=== PATIENT | male | born 1940 | race Caucasian/White ===

== ENCOUNTER 2017-05-10 14:12 | Outpatient (CLI) | payer MEDICARE, OTHER ==
[2017-05-10 14:26] LABS: BASOPHILS % 0.6 (0.0-1.5); EOSINOPHILS % 5.3 % (0.0-6.8); MEAN CORPUSCULAR VOLUME 89.9 fl (80.0-100.0); MONOCYTES % 6.8 % (0.0-11.0); NEUTROPHILS # 4.7 # k/uL (1.4-7.7)
[2017-05-10 14:30] LABS: APPEARANCE,URINE Clear (CLEAR); COLOR,URINE Yellow (YELLOW); OCCULT BLOOD,URINE Negative (NEGATIVE); UROBILINOGEN URINE 0.2 Eu (0.2-1.0)
[2017-05-10 14:55] LABS: eGFR (African) 30; eGFR (Non-African) 25
== END 2017-05-10 14:13 ==
LOC: LAB 14:12
PROVIDERS: ATTEND Family Medicine
DX: I10 Essential (primary) hypertension (principal); N18.3 Chronic kidney disease, stage 3 (moderate); R31.9 Hematuria, unspecified
CPT/HCPCS: 36415; 80048; 81002; 85025

== ENCOUNTER 2017-05-23 10:49 | Outpatient (CLI) | payer MEDICARE, OTHER | END 2017-05-23 10:50 | LOC: OUT 10:49 | PROVIDERS: ATTEND Colon & Rectal Surgery | DX: K40.90 Unilateral inguinal hernia, without obstruction or gangrene, not specified as recurrent (principal) | CPT/HCPCS: G0463 ==

== ENCOUNTER 2017-05-28 13:31 | Outpatient (CLI) | payer MEDICARE, OTHER ==
--- NOTE | 2017-05-28 14:59 | Diagnostic Imaging Report ---
BE CENTENO [facility] [address] [facility] [address] [address] Report Submission Date: May 28, 2017 2:32:50 PM CDT Patient Study Name: LELAND RODRIGUEZ Date: May 28, 2017 1:44:36 PM CDT Modality Type: US Gender: M Description: DPLX SCN XTRCRAN ART CMP LAMONT : 42 Institution: [facility] Physician: BE CENTENO Examination: Carotid artery ultrasound History: Syncope Comparison exams: None available Findings: Right carotid: Common carotid artery peak systolic velocity 88.3 cm/s; end diastolic velocity 25.1 cm/s. Internal carotid artery peak systolic velocity 85.8 cm/s; end diastolic velocity 26.4 cm/s. External carotid artery velocity to 104.9 cm/s. Vertebral artery velocity 29.2 cm/s Vertebral flow antegrade. Normal waveforms. No occlusive plaquing. Left carotid: Common carotid artery peak systolic velocity 110.3 cm/s; end diastolic velocity 20.6 cm/s. Internal carotid artery peak systolic velocity 184.0 cm/s; end diastolic velocity 49.9 cm/s. External carotid artery velocity to 74.5 cm/s. Vertebral artery velocity 64.9 cm/s Vertebral flow antegrade. Normal waveforms. Moderate plaquing at the origin of the internal carotid artery. Right ICA/CCA Ratio: 1.0 Left ICA/CCA Ratio 1.7 Impression: Mild to moderately elevated left carotid ratio at 1.7 indicating restriction hemodynamic flow. Moderate plaque at the origin of the internal carotid artery. Right carotid system without restriction to hemodynamic flow Electronically signed on May 28, 2017 2:32:50 PM CDT by: Rc PETERS
== END 2017-05-28 13:32 ==
LOC: RAD 13:31
PROVIDERS: ATTEND Family Medicine
DX: G81.91 Hemiplegia, unspecified affecting right dominant side (principal)
CPT/HCPCS: 93880

== ENCOUNTER 2017-05-29 12:08 | Outpatient (CLI) | payer MEDICARE, OTHER | END 2017-05-29 12:10 | LOC: LAB 12:08 | PROVIDERS: ATTEND Family Medicine | DX: R79.1 Abnormal coagulation profile (principal) | CPT/HCPCS: 36415; 85610 ==

== ENCOUNTER 2017-06-02 08:23 | Outpatient (CLI) | payer MEDICARE, OTHER ==
--- NOTE | 2017-06-02 19:11 | Diagnostic Imaging Report ---
CANDELARIA JARAMILLO~ [facility] [place] [facility] [address] [facility].[address] [address] ~ ~ ~ ~ Report Submission Date: Jun 02, 2017 10:09:25 AM CDT Patient ~ Study Name: LELAND RODRIGUEZ ~ Date: Jun 02, 2017 9:13:48 AM CDT ~ Modality Type: MR Gender: M ~ Description: MRI BRAIN W/O CONTRAST : 42 ~ Institution: [facility] [place] [facility] Physician: CANDELARIA JARAMILLO ~ ~ ~ ~ Examination: MRI brain without contrast History: Possible stroke Comparison exam: None provided Technique: MRI brain without contrast. Findings: Ventricles and sulci are appropriate for patient age. Scattered periventricular and deep white matter gliotic foci. On diffusion-weighted images there is a small area of increased signal involving the left basal ganglia. No other diffusion-weighted abnormalities. No midline shift. No extra axial fluid collections. Partial visualization of the paranasal sinuses, mastoid air cells, orbits, skull and scalp are without gross irregularity. No pineal or sellar mass. Impression: Age related parenchymal changes. Diffusion-weighted images demonstrate small area of increased signal left basal ganglia - likely representing a small acute ischemic process. Correlate with patient symptoms. Just findings with ER nurse to relay information to Dr. Polanco ~at 1010 hours on 02 June 2017 ~ Electronically signed on Jun 02, 2017 10:09:25 AM CDT by: Rc PETERS
--- NOTE | 2017-06-02 19:12 | Diagnostic Imaging Report ---
CANDELARIA JARAMILLO~ [facility] [address] [facility] [place] [facility] [address] [place], [place]. [address] ~ ~ ~ ~ Report Submission Date: Jun 02, 2017 10:43:00 AM CDT Patient ~ Study Name: LELAND RODRIGUEZ ~ Date: Jun 02, 2017 8:39:06 AM CDT ~ Modality Type: MR Gender: M ~ Description: MRA NECK W/O CONTRAST : 42 ~ Institution: [facility] Physician: CANDELARIA JARAMILLO ~ ~ ~ ~ Examination: MRI neck /carotids History: Right-sided weakness. Comparison exams: MRI brain dated 02 June 2017 Technique: MRI carotid arteries. No reconstructed images provided Findings: Origins of the arteries not visualized. Narrowing of the common carotid artery by approximately 50-60 % near the bifurcation. Right vertebral artery is diminutive with o majority of the artery not visualized. Regions of scattered peripheral atherosclerotic disease involving the internal carotid arteries and visualize margins of the left vertebral artery. Impression: Suboptimal study demonstrating scattered regions of arterial plaquing and narrowing. Nonvisualization of the right vertebral artery suggesting occlusion. Consider obtaining interventional neurology of the consultation for further evaluation. Discussed MR findings with ER nurse to relay information to Dr. Polanco ~at 1010 hours on 02 June 2017 ~ Electronically signed on Jun 02, 2017 10:43:00 AM CDT by: Rc PETERS
== END 2017-06-02 08:24 ==
LOC: RAD 08:23
PROVIDERS: ATTEND Family Medicine
DX: G81.91 Hemiplegia, unspecified affecting right dominant side (principal); I65.21 Occlusion and stenosis of right carotid artery
CPT/HCPCS: 70547; 70551

== ENCOUNTER 2017-06-02 10:25 | Emergency (ER) | payer MEDICARE, OTHER ==
--- NOTE | 2017-06-02 12:23 | ED Physician Documentation ---
General Adult - HISTORIAN Historian: other (Pt not seen in ER, history from record) - HPI Stated Complaint: R-sided weakness Chief Complaint: General Adult Onset: days ago (>7days) Timing: still present Further Comments: yes (Pt is a 76 yo male who has been having R-sided weakness and was sent by his pcp for an out-patient MRI this am. MRI showed a small acute ischemic process in the R basal ganglia. Pt was urged to be seen in ER, but refused to be seen here. Pt stated that he would go to [facility] on his own, and that his brother would take him there. Pt was not seen in ER, AMA. ) - ROS CONST: weakness - PAST HX Past History: other (BPH; DJD cervical spine; Dementia; HLD; HTN; Renal insufficiency.) Allergies/Adverse Reactions: Allergies Allergy/AdvReac Type Severity Reaction Status Date / Time No Known Drug Allergies Allergy Unverified 06/21/16 13:34 Home Medications: Ambulatory Orders Medication Instructions Recorded Aspirin [Aspir 81] 81 mg PO DAILY u2 06/21/16 Atorvastatin Calcium 10 mg PO DAILY u2 06/21/16 Carvedilol [Coreg] 12.5 mg PO BID u2 06/21/16 Chlorthalidone 25 mg PO DAILY u2 06/21/16 Doxazosin Mesylate 4 mg PO DAILY u2 06/21/16 Nifedipine [Nifedipine Er] 30 mg PO DAILY u2 06/21/16 Torsemide 20 mg PO DAILY u2 06/21/16 - SOCIAL HX Smoking History: other (smoking hx unknown) - FAMILY HX Family History: No General Adult Physical Exam - PHYSICAL EXAM GENERAL APPEARANCE: No exam, AMA Discharge Clincal Impression: R-sided weakness, cva Referrals: Volodymyr Maurer MD [Primary Care Provider] - 2 Days Home Medications: Ambulatory Orders Aspirin [Aspir 81] 81 mg PO DAILY u2 06/21/16 Atorvastatin Calcium 10 mg PO DAILY u2 06/21/16 Carvedilol [Coreg] 12.5 mg PO BID u2 06/21/16 Chlorthalidone 25 mg PO DAILY u2 06/21/16 Doxazosin Mesylate 4 mg PO DAILY u2 06/21/16 Nifedipine [Nifedipine Er] 30 mg PO DAILY u2 06/21/16 Torsemide 20 mg PO DAILY u2 06/21/16
== END 2017-06-02 10:35 | disposition left against medical advice (07) ==
LOC: ED 10:25
DX: Z53.21 Procedure and treatment not carried out due to patient leaving prior to being seen by health care provider (principal)

== ENCOUNTER 2017-08-08 07:23 | Day surgery (SDC) | payer MEDICARE, OTHER ==
[2017-08-08] MEDS ORDERED: SALINE FLUSH 10 ML DISP.SYRIN IVF ONE (08:00)
[2017-08-08] MEDS ORDERED: LACTATED RINGERS 1,000 ML IV.SOLN IV ONE (08:00)
[2017-08-08] MEDS ORDERED: ACETAMINOPHEN 1,000 MG/100 ML INJ IV ONE (08:00)
[2017-08-08] MEDS ORDERED: BUPIVACAINE HCL/EPINEPHRINE/PF 0.25% VIAL IM ONE (08:00)
[2017-08-08] MEDS ORDERED: DEXAMETHASONE SOD PHOS 4 MG/ML VIAL ONE (08:00)
[2017-08-08] MEDS ORDERED: MIDAZOLAM HCL 2 MG/2 ML VIAL ONE (08:00)
[2017-08-08] MEDS ORDERED: PROPOFOL 200 MG/20 ML VIAL IV ONE (08:00)
[2017-08-08] MEDS ORDERED: fentaNYL CITRATE/PF 100 MCG/ 2ML AMP ONE (08:00)
[2017-08-08] MEDS ORDERED: SEVOFLURANE 250 ML LIQUID IH ONE (08:00)
[2017-08-08] MEDS ORDERED: BACITRACIN 50,000 UNIT VIAL ONE (08:00)
[2017-08-08] MEDS ORDERED: HYDROcodone /APAP 5/325 1 EACH TABLET ONE ×2 (08:00→11:19)
[2017-08-08] MEDS ORDERED: ceFAZolin SODIUM 1 GM VIAL ONE (08:00)
--- NOTE | 2017-08-08 12:35 | History and Physical Report ---
HISTORY OF PRESENT ILLNESS: This is a 76-year-old man who has had a several month history of a left inguinal hernia. He has noticed a bulge most of the time and has discomfort. He would like repair. PAST MEDICAL HISTORY: 1. Significant for hypertension. 2. CVA. 3. Chronic renal insufficiency. 4. Hyperlipidemia. 5. BPH. PAST SURGICAL HISTORY: Right inguinal hernia repair. CURRENT MEDICATIONS: 1. Aspirin. 2. Carvedilol. 3. Hydrochlorothiazide. 4. Finasteride. 5. Atorvastatin. 6. Doxazosin. 7. Vitamins. ALLERGIES: He has no allergies. FAMILY HISTORY: His father had brain disease. SOCIAL HISTORY: He denies tobacco or alcohol use. REVIEW OF SYSTEMS: Denies chest pain, shortness of breath, weight loss, skin problems, dysuria, hematuria, hearing problems, eye problems. He has back pain. He has no change in bowel habits. He did have a recent question of a stroke on MRI; however, he has been cleared by Neurology for surgery and to be off of his blood thinner. PHYSICAL EXAMINATION: General: On exam, he is well-developed and well-nourished in no acute distress. HEENT: Normocephalic. No masses. Neck: Trachea is midline. Chest: Clear to auscultation bilaterally. Heart: Regular rate and rhythm. Abdomen: Soft. No masses. No tenderness. : He has a reducible left inguinal hernia. No right hernia. Neurologic: Alert and oriented. No deficits. Musculoskeletal: He has normal range of motion. No deformities. Skin: Skin shows no rashes. IMPRESSION: Left inguinal hernia. PLAN: He desires repair. We discussed risks including bleeding, infection, recurrence , and postoperative pain. We will schedule him in the near future. cc: Dr. Volodymyr PETERS
--- NOTE | 2017-08-09 08:10 | Operative Note ---
SURGEON: Bebeto Grey MD ANESTHESIA: General anesthesia. ESTIMATED BLOOD LOSS: Minimal. COMPLICATIONS: None. PREOPERATIVE DIAGNOSES: Left inguinal hernia. POSTOPERATIVE DIAGNOSES: Left inguinal hernia. PROCEDURE PERFORMED: Repair of left inguinal hernia with mesh. INDICATIONS FOR PROCEDURE: This is a 76-year-old man with a symptomatic left inguinal hernia who presents for repair. DESCRIPTION OF PROCEDURE: Patient was brought to the operating room with general anesthesia achieved. The left groin was prepped and draped. An oblique incision was made and carried to the subcutaneous tissues. The external oblique fascia was sharply divided. The cord and its contents were encircled with a Lelo drain. On examination of the cord, he had a hernia sac and this dissected free and found to be a sliding hernia with colon. This was reduced. The inguinal internal ring was closed with a 2-0 silk suture. The ilioinguinal floor was repaired with Marlex lyle. It was sewn to the pubic tubercle medially and along the shelving edge of the inguinal ligament inferiorly with a running 2-0 Prolene suture and sewn to the transversalis fascia superiorly. The tails of the mesh were tacked lateral to the ring. The wound was irrigated and suctioned. There was no bleeding. The external oblique fascia was closed with a running 2-0 Vicryl suture and the Kim's fascia with 3-0 Vicryl. The skin was closed with a 4-0 Vicryl subcuticular suture. Steri-Strips and a dressing were placed over the incision. The patient was awakened and extubated in the operating room and taken to the recovery room in good condition. FINDINGS: Sliding left inguinal hernia. cc: Dr. Volodymyr PETERS
== END 2017-08-08 07:24 ==
LOC: OPSURG 07:23
PROVIDERS: ATTEND Colon & Rectal Surgery
DX: K40.30 Unilateral inguinal hernia, with obstruction, without gangrene, not specified as recurrent (principal); I10 Essential (primary) hypertension; I62.9 Nontraumatic intracranial hemorrhage, unspecified; N18.9 Chronic kidney disease, unspecified; E78.5 Hyperlipidemia, unspecified
CPT/HCPCS: A9270; J0690; J1100; J2250; J2704; J3010; J3490; J7030; J7120; 49525; C1781; S1016

== ENCOUNTER 2017-09-05 09:58 | Outpatient (CLI) | payer MEDICARE, OTHER | END 2017-09-05 10:00 | LOC: OUT 09:58 | PROVIDERS: ATTEND Colon & Rectal Surgery | DX: K40.90 Unilateral inguinal hernia, without obstruction or gangrene, not specified as recurrent (principal) | CPT/HCPCS: G0463 ==

== ENCOUNTER 2018-08-14 09:29 | Outpatient (CLI) | payer MEDICARE, OTHER ==
--- NOTE | 2018-08-14 19:47 | Diagnostic Imaging Report ---
JOANIE KOO [facility] [address] [facility].[address] [address] Report Submission Date: Aug 14, 2018 10:25:32 AM CDT Patient Study Name: LELAND RODRIGUEZ Date: Aug 14, 2018 9:36:42 AM CDT Modality Type: DX Gender: M Description: LOWER EXTREMITY : 42 Institution: [facility] Physician: JOANIE KOO Examination: Plain film left foot History: LEFT FOOT, CHRONIC PAIN IN LEFT FOOT, SWELLING, PT STATES STAGE 4 KIDNEY DISEASE AND NO KNOWN INJURY (Hx) Findings: 3 weight bearing views of the left foot demonstrates normal cortical margins. Articular osteophytes. No fracture or dislocation. Calcaneal spurs. No soft tissue swelling. No joint effusion. Impression: Degenerative changes. No acute osseous process. Electronically signed on Aug 14, 2018 10:25:32 AM CDT by: Rc PETERS
--- NOTE | 2018-08-14 19:48 | Diagnostic Imaging Report ---
JOANIE KOO [facility] [address] [facility] [address] [address] Report Submission Date: Aug 14, 2018 10:26:34 AM CDT Patient Study Name: LELAND RODRIGUEZ Date: Aug 14, 2018 9:37:50 AM CDT Modality Type: DX Gender: M Description: LOWER EXTREMITY : 42 Institution: [facility] Physician: JOANIE KOO Examination: Plain film left ankle History: LEFT ANKLE, ACUTE LEFT ANKLE PAIN, NO KNOWN INJURY, PT STATES STAGE 4 KIDNEY DISEASE (Hx) Findings: 3 weight bearing views of the left ankle demonstrates normal cortical margins. No fracture or dislocation. Talar dome is intact. Calcaneal spurs. No soft tissue swelling. No joint effusion. Impression: Calcaneal spurs. No acute osseous process. Electronically signed on Aug 14, 2018 10:26:34 AM CDT by: Rc PETERS
== END 2018-08-14 09:32 ==
LOC: RAD 09:29
PROVIDERS: ATTEND Podiatrist Foot & Ankle Surgery
DX: M25.572 Pain in left ankle and joints of left foot (principal); M79.672 Pain in left foot
CPT/HCPCS: 73610; 73630